=== PATIENT | male | born 1970 | race African-American/Black ===

== ENCOUNTER 2025-03-14 15:02 | Outpatient (OUT) | payer OTHER, SELFPAY ==
[2025-03-14 15:26] LABS: Estimated Average Glucose 206 mg/dL; Glycohemoglobin A1C 8.8 % (4.5-6.2)
== END 2025-03-14 15:03 | disposition home or self-care (01) ==
LOC: LAB 15:02
PROVIDERS: Visit Provider Nurse Practitioner Primary Care
DX: E89.0 Postprocedural hypothyroidism (principal); E11.9 Type 2 diabetes mellitus without complications; F10.20 Alcohol dependence, uncomplicated
CPT/HCPCS: 36415; 83036